=== PATIENT | male | born 1995 | race African-American/Black ===

== ENCOUNTER 2018-06-01 14:41 | Emergency (ER) | payer OTHER ==
[~2018-06-01] VITALS: Ht 175.3 cm; Wt 76.8 kg
[2018-06-01 14:41] VITALS: BP 134/58
[2018-06-01] MEDS ORDERED: ZYRTTAB8 PO (15:17)
[2018-06-01] MEDS ORDERED: FLON1SPR NARES (15:17)
== END 2018-06-01 15:24 | disposition home or self-care (01) ==
LOC: M ED 14:41
DX: H65.02 Acute serous otitis media, left ear (principal)

== ENCOUNTER 2018-12-01 13:07 | Emergency (ER) | payer OTHER ==
[~2018-12-01] VITALS: Ht 175.3 cm; Wt 77.3 kg
[~2018-12-01 13:07] MED LIST: FLON1SPR NARES; ZYRTTAB8 PO
[2018-12-01 14:06] LABS: BASO % 0.3 % (0.0-1.0); HEMATOCRIT 47.5 % (42.0-52.0); HEMOGLOBIN 15.7 g/dl (13.5-17.5); LYMPH # 1.4 10^3/uL (1.5-6.5); LYMPH % 15.7 % (24.0-44.0); MEAN CORPUSCULAR HEMOGLOBIN 28.5 pg (27.0-33.0); MEAN CORPUSCULAR HGB CONC 33.1 g/dl (32.0-36.5); MEAN CORPUSCULAR VOLUME 86.4 fl (80.0-96.0); MONO # 0.5 10^3/uL (0.0-0.8); MONO % 5.4 % (0.0-5.0); NEUTROPHILS # 7.1 10^3/uL (1.8-7.7); NEUTROPHILS % 78.5 % (36.0-66.0); PLATELET COUNT, AUTOMATED 270 10^3/uL (150-450)
[2018-12-01 14:38] LABS: ALBUMIN 4.6 GM/DL (3.2-5.2); ALT/SGPT 63 U/L (12-78); BILIRUBIN,DIRECT 0.2 MG/DL (0.0-0.2); BILIRUBIN,TOTAL 0.9 MG/DL (0.2-1.0); BLOOD UREA NITROGEN 18 MG/DL (7-18); CALCIUM LEVEL 9.7 MG/DL (8.5-10.1); CARBON DIOXIDE LEVEL 28 MEQ/L (21-32); CHLORIDE LEVEL 100 MEQ/L (98-107); CREATININE FOR GFR 1.27 MG/DL (0.70-1.30); GLOMERULAR FILTRATION RATE > 60.0 (>60); GLUCOSE, FASTING 88 MG/DL (70-100); LIPASE 147 U/L (73-393); POTASSIUM SERUM 4.6 MEQ/L (3.5-5.1); SODIUM LEVEL 138 MEQ/L (136-145); TOTAL PROTEIN 8.9 GM/DL (6.4-8.2)
[2018-12-01] MEDS ORDERED: NS 1,000 ML IV ONE (14:45)
[2018-12-01 15:21] LABS: BILIRUBIN, URINE MANUAL NEGATIVE (NEGATIVE); GLUCOSE, URINE (UA) MANUAL NEGATIVE (NEGATIVE); KETONE, URINE MANUAL 2+ mg/dL (NEGATIVE); UROBILINOGEN, URINE MANUAL NORMAL (NORMAL)
--- NOTE | 2018-12-01 16:22 | REP ---
RIGHT UPPER QUADRANT ULTRASOUND: Real-time sonographic evaluation of the right upper quadrant was performed. The gallbladder demonstrates no evidence of intraluminal sludge or calculi, wall thickening or pericholecystic fluid. There is no intrahepatic or extrahepatic biliary dilatation, common bile duct measuring 3 mm. The liver and pancreas demonstrate homogenous echotexture with no gross mass. Right kidney demonstrates no hydronephrosis with normal size 11.2 cm in length. Right kidney is somewhat hyperechoic which may indicate underlying renal disease. There is no hydronephrosis. IMPRESSION: Hyperechoic right kidney may indicate underlying renal parenchymal disease, with no hydronephrosis. Otherwise negative right upper quadrant ultrasound. Electronically Signed by Leobardo Mcdermott MD 12/01/2018 04:37 P
[2018-12-01] MEDS ORDERED: OMEP40CA2 PO (16:30)
[2018-12-01 16:41] VITALS: BP 127/73
== END 2018-12-01 16:44 | disposition home or self-care (01) ==
LOC: M ED 13:07
DX: R93.5 Abnormal findings on diagnostic imaging of other abdominal regions, including retroperitoneum (principal); R79.9 Abnormal finding of blood chemistry, unspecified; R11.2 Nausea with vomiting, unspecified